=== PATIENT | female | born 1970 | race Caucasian/White ===

== ENCOUNTER → 2023-07-25 08:24 | Outpatient (REF) | payer OTHER, SELFPAY | LOC: HWWDC 08:24 | PROVIDERS: ATTENDING PHYSICIAN Obstetrics & Gynecology; FAMILY PHYSICIAN Family Medicine | DX: Z12.31 Encounter for screening mammogram for malignant neoplasm of breast (principal) | CPT/HCPCS: 77063; 77067 ==

== ENCOUNTER → 2023-08-07 09:57 | Outpatient (REF) | payer OTHER, SELFPAY | LOC: RAD 09:57 | PROVIDERS: ATTENDING PHYSICIAN Family Medicine | DX: R10.32 Left lower quadrant pain (principal); Z85.42 Personal history of malignant neoplasm of other parts of uterus | CPT/HCPCS: 74177; Q9967 ==

== ENCOUNTER 2023-08-15 15:04 | Emergency (ER) | payer OTHER, SELFPAY ==
[2023-08-15 15:06] VITALS: BP 159/84
[2023-08-15 15:36] LABS: % Basophils 0.9 % (0-2); % Eosinophils 1.6 % (0-6); % Immature Granulocytes 0.2 % (0-0.5); % Lymphocytes 36.6 % (20.5-51.1); % Monocytes 6.6 % (1.7-9.3); % Neutrophils 54.1 % (42.2-75.2); Absolute Basophils 0.1 10^3/uL (0-0.2); Absolute Eosinophils 0.1 10^3/uL (0-0.7); Absolute Monocytes 0.4 10^3/uL (0.1-0.6); Hematocrit 40.1 % (37.0-47.0); Hemoglobin 14.4 g/dL (12.0-16.0); Mean Corp Hgb Conc. 35.9 g/dL (33.0-37.0); Mean Corpuscular Hgb 29.9 pg (27.0-31.0); Mean Corpuscular Volume 83.2 fL (81.0-99.0); Mean Platelet Volume 10.4 fL (7.4-10.4); Nucleated Red Blood Cells % 0 %; Platelet Count 264 10^3/uL (130-400); Red Blood Cell Count 4.82 10^6/uL (4.20-5.40); Red Cell Dist. Width 11.6 % (11.5-14.5); White Blood Cell Count 5.5 10^3/uL (4.8-10.8)
[2023-08-15 15:56] LABS: ALT (SGPT) 18 U/L (0-35); AST (SGOT) 25 U/L (14-36); Albumin 4.7 g/dl (3.5-5.0); Alkaline Phosphatase 86 U/L (38-126); Blood Urea Nitrogen 13 mg/dl (7-17); Calcium 9.8 mg/dl (8.4-10.2); Carbon Dioxide 24 mmol/L (22-30); Chloride 104 mmol/L (98-107); Glucose 91 mg/dl (70-99); Potassium 4.1 mmol/L (3.5-5.1); Sodium 139 mmol/L (135-145); Total Bilirubin 0.5 mg/dl (0.2-1.3); Total Protein 7.3 g/dl (6.3-8.2); eGFR > 60.00
[2023-08-15 15:57] LABS: Lipase 79 U/L (23-300)
[2023-08-15 15:59] LABS: Urine Albumin Negative (Neg - Trace); Urine Bilirubin Negative (Negative); Urine Character Clear (Clear); Urine Color Yellow; Urine Glucose Negative (Negative); Urine Ketone Negative (Negative); Urine Leukocyte Negative (Negative); Urine Nitrite Negative (Negative); Urine Occult Blood Negative (Negative); Urine Urobilinogen Negative (Neg - 1+)
--- NOTE | 2023-08-15 16:55 | ED.GENMED ---
History of Present Illness
General
Chief Complaint: Abdominal Pain
Source: patient
Exam Limitations: none
Time Seen by Provider: 08/15/23 15:22
Nursing documentation reviewed up to this point in time: agreed with
History of Present Illness
History of Present Illness:
pt si a 53 y/ oF with ho uterine fibroids s/p hysterectomy
here with left pelvic pain x 2 months
it was more in her LLQ initially and she went to pcp and had outpatient CT showing large stool burden and was put on stool softener and feels that that issue is resolved. pt has since had more pressure in the L pelvic region into her left groin
she felt like it may be [employer]GER [employer] related so [facility] and
Past History
Past History
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
ED Past Surgical History: (X3) and Gynecological (Tubel, Fibroids removed X 2)
Social History
Tobacco: Non-smoker
Alcohol: None
Personal:
Living: with family
Employment: Employed
Phy Exam
Physical Exam
Physical Exam:
GENERAL: Alert , in no apparent distress
EYE: pupils equal and reactive
NECK: Supple
ENT: o/p clr, mmm.
CARDIAC: Regular rate and rhythm .
LUNGS: Clear breath sounds bilaterally, no acute respiratory distress, no wheezes/rales/rhonchi
ABDOMEN: Soft, mild left lower quad tendenress, no r/g, no cvat, normal bowel sounds
left groin normal inspection, no XIANG, normla rom
NEUROLOGICAL: Alert and oriented, no focal neuro deficits
SKIN: Warm and dry, skin intact.
MUSCULOSKELETAL: No edema, well perfused.
PSYCH: Normal and appropriate interaction.
Course
Orders/Labs/Results
Orders:
Orders
08/15/23 15:18
IV Insert/Care/Rem.- Treatment PRN
08/15/23 15:30
Complete Blood Count/With Diff Urgent
Comprehensive Metabolic Panel Urgent
Lipase Urgent
Urinalysis Reflex To Culture Urgent
Date Specimen was Collected: 08/15/23
Time Specimen was Collected: 15:20
08/15/23 16:32
US Pelvis W Transvag Combined Urgent
Comment:
Reason For Exam: L pelvic pain, eval for flow;
08/15/23 19:09
Acetaminophen [Tylenol] 650 mg PO NOW STA
08/15/23 15:30
08/15/23 15:30
Vital Signs
Initial and Last Documented VS:
Initial Vital Signs
Temp Pulse Resp BP Pulse Ox
97.6 F 77 18 159/84 99
08/15/23 15:06 08/15/23 15:06 08/15/23 15:06 08/15/23 15:06 08/15/23 15:06
Last Documented Vital Signs
Temp Pulse Resp BP Pulse Ox
97.6 F 75 17 150/80 99
08/15/23 15:06 08/15/23 19:49 08/15/23 19:49 08/15/23 19:49 08/15/23 19:49
MDM/Problems Addressed
Differential Diagnosis Includes:
chronic pelvic pain, msk pain, intersistis cystitis, uti, constipationm ovarian cyt
MDM/Problems Addressed:
53 y/o F with months of left side dlower abd pain into her left inguinalregion and thigh
getting worse
wose with movement
some urinary symptoms of frequency r discomfort
has had empiric abx, urine neg
had recent CTAP as outpatient by pcp,labs; the ct showed constipation otherwise no findings toexplain pain
pt even went to gyne TODAY an dhad exam and they told her to get US if pain worsened
she takes tylenol only which helps minnimally
no discharge
on eam slightly tender left pelvis
deferred pelvic to [facility] from today
left inguinal region nomral pusle, no Xiang
US of her ovairies normal
s/p hysterectomy
labs diego
urine normal
? pelvic pain caused by I.C.?
f/u with uro gyne
*Critical Care Note
Total Time (30-74mins, 75-104mins- exclusive of procedures): Not Applicable
ED Attending Note
-
Portions of this chart may have been created with voice recognition software.� Occasional wrong word or��sound alike� substitutions may have occurred due to the inherent limitations of voice recognition software.
Discharge Plan
Departure
Patient Disposition: Home (Routine Discharge)
Date of Disposition: 08/15/23
Time of Disposition: 19:50
Patient with high blood pressure during this ER visit?: No
Condition: Fair
Covid-19: Not Applicable
Discharge Problem:
Pelvic pain
Instructions: Chronic Pelvic Pain (DC)
Prescriptions:
No Action
Iron
1 - 2 tab PO HS
Patient Comments:
Pt states she takes 1 tablet unless she is menstruating then she takes 2 tablets.
hydromorphone [Dilaudid] 2 MG tablet
2 mg PO Q4HPRN PRN (Reason: moderate pain) Qty: 15 0RF
Referrals:
Yeny Sheffield, [Family Provider] - Follow up in 2-3 days
Activity Restrictions/Additional Instructions:
Your ultrasound showed what look like normal ovaries and normal blood flow to the ovaries. There is no suggestion of any emergency related to this pain today. Given your recent CAT scan findings and normal blood work and urinalysis were not really
sure what is caus return for any concerns ing this pain. You should follow-up with your family doctor. Continue taking Tylenol though make sure you are taking no more than 4000 mg in any 24-hour period.
Interventions
Interventions:
*Risk Screen - Suicide Last Done: 08/15/23 15:06
*General Assessment Last Done: 08/15/23 15:06
*Neglect/Abuse Screening Last Done: 08/15/23 15:06
ED- Fall Risk Assessment Last Done: 08/15/23 15:37
*Nursing Disposition Last Done: 08/15/23 20:11
[facility] Assessment Last Done: 08/15/23 15:37
Discharge Date and Time
Discharge Date/Time: 08/15/23 20:11
Print Language: CAMEROONIAN
[2023-08-15] MEDS: TYLENOL 650 MG PO (19:12)
[2023-08-15 19:49] VITALS: BP 150/80
== END 2023-08-15 20:11 | disposition home or self-care (01) ==
LOC: EMR 15:04
PROVIDERS: EMERGENCY PHYSICIAN Emergency Medicine; FAMILY PHYSICIAN Family Medicine
DX: R10.2 Pelvic and perineal pain (principal); K59.00 Constipation, unspecified; R10.32 Left lower quadrant pain; D64.9 Anemia, unspecified; Z85.42 Personal history of malignant neoplasm of other parts of uterus; Z88.6 Allergy status to analgesic agent; Z88.5 Allergy status to narcotic agent; Z91.013 Allergy to seafood; Z88.2 Allergy status to sulfonamides; Z88.8 Allergy status to other drugs, medicaments and biological substances; Z91.048 Other nonmedicinal substance allergy status
CPT/HCPCS: 99284; 76830; 76856; 80053; 81003; 83690; 85025

== ENCOUNTER → 2023-09-10 08:24 | Outpatient (REF) | payer OTHER, SELFPAY | LOC: MRI 08:24 | PROVIDERS: ATTENDING PHYSICIAN Family Medicine | DX: R16.0 Hepatomegaly, not elsewhere classified (principal); Z85.42 Personal history of malignant neoplasm of other parts of uterus | CPT/HCPCS: 74183; A9575 ==

== ENCOUNTER → 2024-11-26 06:52 | Outpatient (REF) | payer OTHER, SELFPAY | LOC: HWWDC 06:52 | PROVIDERS: ATTENDING PHYSICIAN Obstetrics & Gynecology; FAMILY PHYSICIAN Family Medicine | DX: Z12.31 Encounter for screening mammogram for malignant neoplasm of breast (principal) | CPT/HCPCS: 77063; 77067 ==